=== PATIENT | female | born 1975 | race Caucasian/White ===

== ENCOUNTER 2019-09-25 09:25 | Emergency (ER) | payer SELFPAY ==
[2019-09-25 10:06] LABS: ABSOLUTE LYMPHOCYTES (AUTO) 2.8 10^3/uL (0.5-4.7); ABSOLUTE MONOCYTES (AUTO) 0.4 10^3/uL (0.1-1.4); ABSOLUTE NEUT (AUTO) 3.6 10^3/uL (1.7-8.2); BASOPHILS % (AUTO) 0.3 % (0-2); EOSINOPHILS % (AUTO) 0.6 % (0-6); HEMATOCRIT 40.2 % (36.0-47.0); HEMOGLOBIN 13.8 g/dL (12.0-15.5); LYMPHOCYTES % (AUTO) 40.9 % (13-45); MEAN CORPUSCULAR HEMOGLOBIN 30.2 pg (27.0-33.4); MEAN CORPUSCULAR HGB CONC 34.2 g/dL (32.0-36.0); MEAN CORPUSCULAR VOLUME 88 fl (80-97); MONOCYTES % (AUTO) 6.2 % (3-13); PLATELET COUNT 193 10^3/uL (150-450); RED BLOOD COUNT 4.56 10^6/uL (3.72-5.28); RED CELL DISTRIBUTION WIDTH 13.2 % (11.5-14.0); TOTAL CELLS COUNTED % (AUTO) 100 %; WHITE BLOOD COUNT 6.9 10^3/uL (4.0-10.5)
[2019-09-25 10:20] LABS: ALBUMIN 4.3 g/dL (3.5-5.0); ALKALINE PHOSPHATASE 86 U/L (38-126); ANION GAP 5 (5-19); ASPARTATE AMINO TRANSFERASE 19 U/L (14-36); BLOOD UREA NITROGEN 17 mg/dL (7-20); CALCIUM 9.5 mg/dL (8.4-10.2); CARBON DIOXIDE 33 mmol/L (22-30); CHLORIDE 100 mmol/L (98-107); CREATINE KINASE 85 U/L (30-135); GLUCOSE 126 mg/dL (75-110); POTASSIUM 4.4 mmol/L (3.6-5.0); TOTAL PROTEIN 7.6 g/dL (6.3-8.2)
[2019-09-25 10:30] LABS: CREATINE KINASE MB 0.64 ng/mL (<4.55)
[2019-09-25 10:32] LABS: TROPONIN I < 0.012 ng/mL
[2019-09-25] MEDS ORDERED: KETOROLAC TROMETHAMINE INJ/PF 30 MG/1 ML SDV IV ONE (11:39)
--- NOTE | 2019-09-25 11:40 | ER Document Report ---
ED General - General Chief Complaint: Chest Pain Stated Complaint: CHEST PAIN Time Seen by Provider: 09/25/19 11:21 Mode of Arrival: Ambulatory Information source: Patient Notes: 44-year-old woman presents to the emergency department with complaint of pain in the left anterior chest left upper back and left arm. She states that symptoms have been ongoing for approximately 1 month. She is used [id number] medications without improvement she denies a history of trauma. TRAVEL OUTSIDE OF THE [place] IN LAST 30 DAYS: No - Related Data Allergies/Adverse Reactions: brompheniramine maleate [From Nasal Decongestant] Allergy (Severe, Verified 09/25/19 09:31) insonmia chlorpheniramine maleate [From Nasal Decongestant] Allergy (Severe, Verified 09/25/19 09:31) insonmia guaifenesin [From Nasal Decongestant] Allergy (Severe, Verified 09/25/19 09:31) insonmia L-desoxyephedrine [From Nasal Decongestant] Allergy (Severe, Verified 09/25/19 09:31) insonmia phenylpropanolamine HCl [From Nasal Decongestant] Allergy (Severe, Verified 09/25/19 09:31) insonmia prednisone [Prednisone] Allergy (Severe, Verified 09/25/19 09:31) insomnia pseudoephedrine HCl [From Nasal Decongestant] Allergy (Severe, Verified 09/25/19 09:31) insonmia triprolidine HCl [From Nasal Decongestant] Allergy (Severe, Verified 09/25/19 09:31) insonmia Past Medical History - Social History Smoking Status: Never Smoker Chew tobacco use (# tins/day): No Frequency of alcohol use: None Drug Abuse: None Family History: Reviewed & Not Pertinent - Past Medical History Cardiac Medical History: Denies: Hx Coronary Artery Disease, Hx Heart Attack, Hx Hypertension Pulmonary Medical History: Denies: Hx Asthma, Hx Bronchitis, Hx COPD, Hx Pneumonia Neurological Medical History: Denies: Hx Cerebrovascular Accident, Hx Seizures Musculoskeletal Medical History: Denies Hx Arthritis Psychiatric Medical History: Reports: Hx Bipolar Disorder Past Surgical History: Reports: Hx Tubal Ligation - Immunizations Hx Diphtheria, Pertussis, Tetanus Vaccination: Yes - 2010 Review of Systems - Review of Systems Notes: Constitutional: Negative for fever. HENT: + Tenderness at the C7 +1. Negative for sore throat. Eyes: Negative for visual changes. Cardiovascular: +chest pain. Respiratory: Negative for shortness of breath. Gastrointestinal: Negative for abdominal pain, vomiting or diarrhea. Genitourinary: Negative for dysuria. Musculoskeletal: +left anterior chest wall tenderness, + left upper back tenderness Skin: Negative for rash. Neurological: Negative for headaches, weakness or numbness. 10 point ROS negative except as marked above and in HPI. Physical Exam - Vital signs Vitals: Temp 97.5 F 09/25/19 09:32 - Notes Notes: PHYSICAL EXAMINATION: Physical Exam: General: Well-nourished well-developed 44-year-old woman in mild acute distress HEENT: NC/AT, pupils equal round and reactive to light, MM moist,nares clear, oropharynx clear, airway patent Neck: supple, no adenopathy, decreased range of motion Neck with tenderness at the C7-T1 area, numbness to palpation below the scapula, Lungs: clear, no wheezing, no rales no rhonchi Chest: + Tenderness in the left anterior chest wall, tenderness noticed parasternal region. CVS: Regular rate and rhythm no murmur gallop or rub Abdomen: Soft, active, nontender, no masses, no hepatosplenomegaly Ext: No edema, clubbing or cyanosis. Neuro: Alert and responsive, moving all 4 extremities on command, cranial nerves intact, no focal findings Skin: Intact no open lesions, no rash PSYCH: Normal mood, normal affect. Course - Re-evaluation Re-evalutation: 09/25/19 14:14 Patient was given Toradol for what appears to be musculoskeletal chest pain and left arm radiculopathy. She notes that the medication has helped and her pain has improved. Evaluation via cardiac work-up is essentially negative with troponins x2 and a EKG which reveals no acute ST or T wave abnormalities. HEART Score: HEART score for chest pain patients Score History Slightly suspicious 0 ECG Normal 0 Age <45 year 0 Risk factors: 1 or 2 risk factors 1 Troponin >2x =normal limit 0 Total If HEART score is = 3 AND both tronponin measurments are normal, the 30 day risk of a major adverse cardiac event (all-cause mortality, myocardia infarction or need for coronary revscularization) is < 1% (Sensitivity 100%, NPV 100%). Chest pain in a patient without evidence of cardiac or other serious etiology on workup today. I discussed with patient that, based on their age, risk factors and emergency department testing today, the likelihood that their symptoms are related to a heart attack is very low (estimated risk of heart attack or over the next 30 days of less than 1%). The patient demonstrates decision making capacity and has verbalized an understanding of these risks to me. Based on this, the patient has chosen to follow-up as an outpatient. Usual chest pain return precautions reviewed. The patient states understanding and agreement with this plan. - Vital Signs Vital signs: Temp Pulse Resp BP Pulse Ox 97.5 F 88 16 138/88 H 98 09/25/19 09:40 09/25/19 09:40 09/25/19 10:26 09/25/19 09:40 09/25/19 10:26 - Laboratory Result Diagrams: 09/25/19 09:50 09/25/19 09:50 Laboratory results interpreted by me: 09/25/19 09:50 Carbon Dioxide 33 H Glucose 126 H - Diagnostic Test Radiology reviewed: Image reviewed, Reports reviewed Radiology results interpreted by me: 09/25/19 14:12 CT cervical spine: No acute changes noted. CT thoracic spine: No acute abnormalities noted. - EKG Interpretation by Me EKG shows normal: Sinus rhythm - Rate of 77, normal sinus rhythm no acute ST or T wave abnormalities, normal axis. Discharge - Discharge Clinical Impression: Chest pain, musculoskeletal, Radicular pain in left arm Condition: Good Disposition: HOME, SELF-CARE Instructions: Chest Wall Pain ([facility]) Additional Instructions: You are seen in the emergency department today and diagnosed with musculoskeletal chest wall pain and left arm radicular pain. You are given prescriptions for diclofenac and gabapentin. Please take these medications as prescribed and follow-up with your primary care doctor for further management. If your symptoms are worsening or if you have other concerns you may return to the emergency department for further evaluation and treatment. HOME CARE INSTRUCTIONS & INFORMATION: Thank you for choosing us for your medical needs. We hope you're satisfied with the care you received. After you leave, you must properly care for your problem and, at the same time, observe its progress. Any condition can change. Some illnesses can change rapidly over hours or days. If your condition worsens, return to the Emergency Department or see your physician promptly. ABOUT YOUR X-RAYS AND EKG'S: If you had an EKG or X-rays taken, they have been read by the Emergency Physician. The X-rays and EKG's will also be read by a Radiologist or Cyber Forensic Specialist within 24 hours. If discrepancies are noted, you will be notified by telephone. Please be certain the ED has a correct telephone number & address where you can be reached. Also, realize that some fractures or abnormalities do not show up on initial X-rays. If your symptoms continue, see your physician. ABOUT YOUR LABORATORY TEST: If you had laboratory tests, the results have been reviewed by the Emergency Physician. Some test results (for example cultures) may not be available for several days. You will be contacted if any test result shows you need additional treatment. Please be certain the ED has a correct telephone number and address where you can be reached. ABOUT YOUR MEDICATIONS: You will receive instructions on how to take your medicine on the prescription label you receive. Additional information may be provided by the Pharmacy. If you have questions afterwards, call the ED for clarification or further instructions. Some prescribed medications may cause drowsiness. Do not perform tasks such as driving a car or operating machinery without consulting your Pharmacist. If you feel you need a refill of pain medication, your condition will need re-evaluation. Please do not call for a refill of any medication. ABOUT YOUR SIGNATURE: Signature of this document acknowledges to followin. Understanding that you received emergency treatment and that you may be released before al medical problems are known or treated. Please be certain the ED has a correct phone number & address where you can be reached. 2. Acknowledgement that you will arrange for follow-up care as recommended. 3. Authorization for the Emergency Physician to provide information to your follow-up Physician in order to maximize your care. AT ANY TIME, IF YOUR SYMPTOMS CHANGE SIGNIFICANTLY OR WORSEN OR YOU DEVELOP NEW SYMPTOMS, RETURN TO THE EMERGENCY DEPARTMENT IMMEDIATELY FOR RE-EVALUATION. OUR GOAL IS TO PROVIDE EXCELLENT MEDICAL CARE! WE HOPE THAT WE HAVE MET YOUR EXPECTATIONS DURING YOUR EMERGENCY DEPARTMENT V ISIT AND THAT YOU FEEL YOU HAVE RECEIVED EXCELLENT CARE! Prescriptions: Diclofenac Sodium 75 mg PO BID PRN #20 tablet.dr ABRAMS Reason: Gabapentin [Neurontin 100 mg Capsule] 100 mg PO Q12 #60 capsule Forms: Return to Work
--- NOTE | 2019-09-25 12:43 | RADIOLOGY REPORT (SQ) ---
EXAM DESCRIPTION: CT CERVICAL SPINE WITHOUT IMAGES COMPLETED DATE/TIME: 09/25/2019 12:27 pm REASON FOR STUDY: Cervical radiculopathy COMPARISON: None. TECHNIQUE: Axial images acquired through the cervical spine without intravenous contrast. Images re viewed with lung, soft tissue and bone windows. Reconstructed coronal and sagittal MPR images review ed. Images stored on PACS. All CT scanners at this facility use dose modulation, iterative reconstruction, and/or weight based d osing when appropriate to reduce radiation dose to as low as reasonably achievable (ALARA). [facility]: Dose Right [facility]: CareDose [facility]: Dose Right [facility]: Teradose 4D [facility]: [employer] RADIATION DOSE: CT Rad equipment meets quality standard of care and radiation dose reduction techniq ues were employed. CTDIvol: 17.3 mGy. DLP: 378 mGy-cm. mGy. LIMITATIONS: None. FINDINGS: ALIGNMENT: There is straightening of the normal cervical lordosis, otherwise alignment is unremarkable. MINERALIZATION: Normal. VERTEBRAL BODIES: No fractures or dislocation. DISCS: No significant disc disease. FACETS, LATERAL MASSES, POSTERIOR ELEMENTS: No fractures. No dislocation. No acute findings. HARDWARE: None in the spine. VISUALIZED RIBS: No fractures. LUNG APICES AND SOFT TISSUES: No significant or acute findings. OTHER: No other significant finding. IMPRESSION: Straightening of the cervical spine without evidence of significant degenerative change or other abnormality. TECHNICAL DOCUMENTATION: JOB ID: [id number] Quality ID # [id number]: Final reports with documentation of one or more dose reduction techniques (e.g., Au tomated exposure control, adjustment of the mA and/or kV according to patient size, use of iterative reconstruction technique) 2010 [employer]- All Rights Reserved Reading location - IP/workstation name: [email or web address]
--- NOTE | 2019-09-25 12:46 | RADIOLOGY REPORT (SQ) ---
EXAM DESCRIPTION: CT THORACIC SPINE WITHOUT IMAGES COMPLETED DATE/TIME: 09/25/2019 12:27 pm REASON FOR STUDY: Cervical radiculopathy COMPARISON: None. TECHNIQUE: Axial images acquired through the thoracic spine without intravenous contrast. Images re viewed with lung, soft tissue and bone windows. Reconstructed coronal and sagittal MPR images review ed. Images stored on PACS. All CT scanners at this facility use dose modulation, iterative reconstruction, and/or weight based d osing when appropriate to reduce radiation dose to as low as reasonably achievable (ALARA). [facility]: Dose Right [facility]: CareDose [facility]: Dose Right [facility]: Teradose 4D [facility]: [employer] RADIATION DOSE: CT Rad equipment meets quality standard of care and radiation dose reduction techniq ues were employed. CTDIvol: 101.7 mGy. DLP: 3160 mGy-cm. mGy. LIMITATIONS: None. FINDINGS: VISUALIZED LUNGS: No acute opacities. No pneumothorax. SOFT TISSUES: No soft tissue swelling. No masses. VERTEBRAL BODIES: No fractures. No dislocation. No acute findings. DISCS: No significant disc space narrowing. ALIGNMENT: Normal. TRANSVERSE PROCESSES, POSTERIOR ELEMENTS: No fractures. No dislocation. No acute findings. HARDWARE: None in the spine. VISUALIZED RIBS: No fractures. OTHER: No other significant finding. IMPRESSION: NORMAL CT OF THE THORACIC SPINE. TECHNICAL DOCUMENTATION: JOB ID: [id number] Quality ID # [id number]: Final reports with documentation of one or more dose reduction techniques (e.g., Au tomated exposure control, adjustment of the mA and/or kV according to patient size, use of iterative reconstruction technique) 2010 [employer]- All Rights Reserved Reading location - IP/workstation name: [email or web address]
[2019-09-25 14:35] VITALS: BP 112/77
--- NOTE | 2019-09-27 06:04 | EKG REPORT ---
SEVERITY:- BORDERLINE ECG - SINUS RHYTHM BORDERLINE T ABNORMALITIES, ANTERIOR LEADS : Confirmed by: Aldair Kelly MD 27-Sep-2019 06:03:58
== END 2019-09-25 14:35 | disposition home or self-care (01) ==
LOC: ER 09:25
DX: R07.89 Other chest pain (principal); M54.10 Radiculopathy, site unspecified; M79.602 Pain in left arm; M54.6 Pain in thoracic spine; Z88.8 Allergy status to other drugs, medicaments and biological substances
CPT/HCPCS: 99284; 96374; 36415; 82553; 82550; 85025; 80053; 84484; 72125; 72128; J1885; 93005; 93010